=== PATIENT | female | born 1950 | race Caucasian/White ===

== ENCOUNTER 2024-05-16 13:24 | Inpatient (IN) | payer MEDICARE ==
[2024-05-16] VITALS (21 sets, daily range): BP systolic 89–108; BP diastolic 45–65
[~2024-05-16] VITALS: Ht 162.6 cm; Wt 92.0 kg
[~2024-05-16 13:24] MED LIST: ZOFRAN4 MG/TAB PO
--- NOTE | 2024-05-16 13:27 | NUR ---
PT TO ROOM WITH SLOW GAIT
[2024-05-16] MEDS ORDERED: SODIUM CHLORIDE 0.9% 1,000 ML IV STA (13:41)
--- NOTE | 2024-05-16 13:50 | NUR ---
PT RESTING IN BED, IV FLUDIS RUNNING, PT DENIES ANY NEEDS, PTS DAUGHTER AT BEDSIDE, CALL LIGHT WITHIN REACH
[2024-05-16] MEDS ORDERED: KETOROLAC TROMETHAMINE 15 MG/ML SDV IV STA (14:14)
[2024-05-16] MEDS ORDERED: MORPHINE SULFATE 4 MG/ML VIAL IV STA (14:14)
[2024-05-16] MEDS ORDERED: ONDANSETRON HCl 4 MG/2 ML SDV IV STA (14:14)
[2024-05-16 14:16] LABS: BASO% 0.1 % (0-3); EOS% 0.1 % (0-8); HEMATOCRIT 41.5 % (37.0-47.0); HEMOGLOBIN 13.3 g/dl (12.0-16.0); IMMATURE GRANULOCYTES 0.2 % (0.0-5.0); LYMPH% 10.1 % (15-41); MEAN CORPUSCULAR HGB 29.2 pG CALC (26.0-32.0); MONO% 0.9 % (2-13); NEUT# 8.8 thou/uL (2.00-7.15); NEUT% 88.6 % (42-76); RED BLOOD COUNT 4.56 mill/uL (4.20-5.60); RED CELL DISTRI WIDTH 13.1 % (11.5-15.5)
[2024-05-16 14:23] LABS: ALBUMIN 3.9 g/dL (3.2-5.0); CREATININE 1.3 mg/dL (0.5-1.0); POTASSIUM 3.6 mmol/l (3.5-5.1); TOTAL PROTEIN 6.8 g/dL (6.3-8.2)
[2024-05-16] MEDS ORDERED: SODIUM CHLORIDE 0.9% 500 ML IV ONE ×3 (14:25→18:05)
[2024-05-16] MEDS ORDERED: SODIUM CHLORIDE 0.9% 1,000 ML IV ONE (14:25)
--- NOTE | 2024-05-16 15:29 | NUR ---
PT RESTING IN BED, VSS, CALL LIGHT WITHIN REACH, PTS DAUGHTER AND SPOUSE AT BEDSIDE, PT DENIES ANY NEEDS AT THIS TIME
--- NOTE | 2024-05-16 16:04 | NUR ---
PT RESTING IN BED, PTS IV FLUIDS RUNNING, DENIES ANY NEEDS AT THIS TIME
[2024-05-16 16:22] LABS: URINE BLOOD DIPSTICK Moderate (NEGATIVE); URINE GLUCOSE - DIPSTICK Negative (NEGATIVE); URINE KETONE 15 mg/dL (NEGATIVE); URINE PROTEIN - DIPSTICK >=300 mg/dL (NEG-TRACE); URINE UROBILINOGEN - DIPSTICK 0.2 E.U./dL (0.2)
[2024-05-16 16:24] LABS: URINE COLOR Dark yellow; URINE LEUK ESTERASE Small (NEGATIVE); URINE NITRITE - DIPSTICK Positive (Negative)
[2024-05-16 16:29] LABS: URINE WBC 20-50 WBC/hpf (0-5)
[2024-05-16 16:30] LABS: URINE BACTERIA FEW hpf; URINE SQUAMOUS EPITHELIAL CELL FEW EPI/hpf (0-FEW)
[2024-05-16 16:31] LABS: URINE HYALINE CAST FEW lpf (NONE-RARE)
[2024-05-16] MEDS ORDERED: ACETAMINOPHEN 325 MG/TAB PO PRN (17:10)
[2024-05-16] MEDS ORDERED: MAGNESIUM HYDROXIDE 30 ML UDC PO PRN (17:10)
[2024-05-16] MEDS ORDERED: SODIUM CHLORIDE 0.9% 1,000 ML IV PRN (17:10)
[2024-05-16] MEDS ORDERED: EZETIMIBE10 MG PO (17:46)
[2024-05-16] MEDS ORDERED: LEVOTHYROXIN125 MCG PO (17:47)
[2024-05-16] MEDS ORDERED: LISINOP/HCTZ1 TA1 PO (17:48)
[2024-05-16] MEDS ORDERED: ATORVASTATIN CA40 MG PO (17:49)
[2024-05-16] MEDS ORDERED: TRELEGY ELLIPTA1 AE1 IN (17:49)
[2024-05-16] MEDS ORDERED: FAMOTIDINE20 M1 PO (17:50)
[2024-05-16] MEDS ORDERED: NOREPINEPHRINE BITARTRATE 4 MG in DEXTROSE 5% 250 ML IV PRN (18:05)
--- NOTE | 2024-05-16 18:28 | NUR ---
CALLED ICU, SPOKE WITH CABRERA KHAN. GAVE PT INFO, PT TO BE TRANSPORTED TO ICU BED 8
--- NOTE | 2024-05-16 19:00 | NUR ---
REPORT RECIEVED FROM CABRERA HENNESSY AT THIS TIME, PT AWAITING TRANSPORT TO ICU AT THIS TIME, REPORT CALLED BY PRIOR NURSE. PT VOICES NO FURTHER QUESTIONSO OR CONCERNS AT THIS TIME.
--- NOTE | 2024-05-16 19:30 | NUR ---
ICU NURSE NOTIFIED OF HOLD ON LEVOPHED GTT DUE TO STABLE B/P AND TRANSPORTING PT AT THIS TIME.
--- NOTE | 2024-05-16 19:45 | NUR ---
PT TRANSPORTED TO ICU AT THIS TIME VIA STRETCHER, PT PIVOTED TO ICU BED, NURSES X2 AT BEDSIDE, PT VOICES APPRECIATION OF CARE.
--- NOTE | 2024-05-16 19:53 | NUR ---
74 yr old white female admitted icu per stretcher from er. stood self with assist then to bed. bed weight obtained. glove sewer shows sinus rhythm. ivf began per chidi tlc. history obtained per pt, family & er record. oriented to room. fall precautions initiated. bed alarm activated.
[2024-05-16] MEDS ORDERED: ENOXAPARIN SODIUM 40 MG/0.4 ML SYR SC SCH (21:00)
--- NOTE | 2024-05-16 22:00 | NUR ---
eyes closed. no distress. retail special event associate shows sinus rhythm.
[2024-05-17] VITALS (52 sets, daily range): BP systolic 77–133; BP diastolic 38–67
--- NOTE | 2024-05-17 00:01 | NUR ---
eyes closed. no distress. ivf infusing well.
--- NOTE | 2024-05-17 02:00 | NUR ---
resting quietly. resps even & unlabored. no apparent distress.
--- NOTE | 2024-05-17 04:30 | NUR ---
blood drawan & sent to lab.
[2024-05-17 04:48] LABS: MEAN CELL VOLUME 92.6 fL CALC (80.0-100.0); MEAN CORPUSCULAR HGB 30.6 pG CALC (26.0-32.0); RED BLOOD COUNT 3.37 mill/uL (4.20-5.60); RED CELL DISTRI WIDTH 13.5 % (11.5-15.5)
[2024-05-17 05:12] LABS: HEMATOCRIT 31.2 % (37.0-47.0); HEMOGLOBIN 10.3 g/dl (12.0-16.0)
[2024-05-17 05:15] LABS: BILIRUBIN, TOTAL 0.9 mg/dL (0.02-1.3); CREATININE 1.7 mg/dL (0.5-1.0); MAGNESIUM 1.4 mg/dL (1.6-2.3); POTASSIUM 3.7 mmol/l (3.5-5.1)
[2024-05-17 05:17] LABS: ALBUMIN 2.6 g/dL (3.2-5.0)
--- NOTE | 2024-05-17 06:00 | NUR ---
eyes closed. setter helper shows sinus rhythm. ivf infusing well.
--- NOTE | 2024-05-17 07:30 | NUR ---
Report received from night clerk auditor nurse. Patient is resting in bed, denies any pain. Patient is A&Ox4, on room air. Levophed running to maintain MAP greater than 65. Medication has been titrated down this AM. IV fluids running as ordered. All needs addressed at this time, call light within reach.
[2024-05-17] MEDS ORDERED: LEVOTHYROXINE SODIUM 125 MCG/TAB PO SCH (08:00)
[2024-05-17] MEDS ORDERED: MAGNESIUM SULFATE HEPTAHYDRATE 50 ML IV SCH (08:00)
[2024-05-17] MEDS ORDERED: FAMOTIDINE 20 MG/TAB PO SCH (09:00)
[2024-05-17] MEDS ORDERED: ALBUTEROL SULFATE 8 GM INH IN PRN (09:35)
--- NOTE | 2024-05-17 10:00 | NUR ---
Patient is resting in bed, denies any pain. Family at bedside. Patient is A&Ox4, on room air. Levophed drip to maintain MAP greater than 65 and IV fluids running as ordered. NSR on tele monitor. All needs addressed at this time, call light within reach.
--- NOTE | 2024-05-17 12:00 | NUR ---
Patient is resting in bed, denies any pain. Patient is A&Ox4, on room air. Levophed drip to maintain MAP greater than 65 and IV fluids running as ordered. NSR on tele monitor. All needs addressed at this time, call light within reach.
[2024-05-17] MEDS ORDERED: cefTRIAXone SODIUM 2 GM in SODIUM CHLORIDE 0.9% 100 ML IV SCH (14:00)
--- NOTE | 2024-05-17 16:00 | NUR ---
Patient is resting in bed, denies any pain. A&Ox4, on room air. Levophed able to be weaned down to 2mcg to maintain MAP greater than 65, NSR on tele monitor, IV fluids running as ordered. All needs addressed, call light within reach.
--- NOTE | 2024-05-17 19:10 | NUR ---
awake. assisted to bsc then back to bed. no c/o pain voiced. monitor tech shows sinus rhythm. ivf infusing per lij tlc. po fluids taken fair. fall precautions cont.
[2024-05-17] MEDS ORDERED: ALUM & MAG HYDROX-SIMETHICONE 30 ML PO PRN (19:20)
--- NOTE | 2024-05-17 22:00 | NUR ---
eyes closed. no distress. ivf cont.
[2024-05-18] VITALS (23 sets, daily range): BP systolic 108–153; BP diastolic 52–94
--- NOTE | 2024-05-18 00:01 | NUR ---
up to [facility] freq. no distress.
--- NOTE | 2024-05-18 02:00 | NUR ---
having what appears to be periods of sleep apnea. pulse ox drops to 77% then increases to 96%.
--- NOTE | 2024-05-18 03:00 | NUR ---
up to bsc. pt admits to be scheduled for sleep study in june.
--- NOTE | 2024-05-18 04:40 | NUR ---
blood drawn & sent to lab.
[2024-05-18 05:07] LABS: HEMATOCRIT 29.6 % (37.0-47.0); HEMOGLOBIN 9.6 g/dl (12.0-16.0); MEAN CELL VOLUME 93.1 fL CALC (80.0-100.0); MEAN CORPUSCULAR HGB 30.2 pG CALC (26.0-32.0); MEAN CORPUSCULAR HGB CONC 32.4 g/dL CAL (32.0-36.0); RED BLOOD COUNT 3.18 mill/uL (4.20-5.60); RED CELL DISTRI WIDTH 13.7 % (11.5-15.5)
[2024-05-18 05:41] LABS: ALBUMIN 2.5 g/dL (3.2-5.0); POTASSIUM 3.8 mmol/l (3.5-5.1)
[2024-05-18 05:49] LABS: BILIRUBIN, TOTAL 0.5 mg/dL (0.02-1.3)
--- NOTE | 2024-05-18 06:04 | NUR ---
pt bathed herself. no distress. ivf cont.
--- NOTE | 2024-05-18 07:19 | NUR ---
PATIENT UP TO BEDSIDE COMMODE - STANBY ASSIST. 350 mL OF YELLOW URINE NOTED. ASSESSMENT COMPLETED (SEE INTERVENTIONS). PATIENT ALERT AND ORIENTED X 4. DENIES PAIN AT THIS TIME. BREATHING EVEN AND UNLABORED ON ROOM AIR. LUNGS CLEAR TO ASCULTATION. PATIENT STATES THAT THAT LAST BM 05/16, USUALLY DAILY, HOWEVER PRIOR TO ADMITTANCE DID HAVE A SEVERE BOUT OF N/V/D. LIVES AT HOME WITH /DAUGHTER. DENIES USING ASSISTIVE DEVICES TO AMBULATE. SAFETY MEASURES IN PLACE INCLUDING BED IN LOW POSITION AND CALL LIGHT NEXT TO R HAND. NO APPARENT DISTRESS NOTED. WILL CONTINUE WITH PLAN OF CARE.
--- NOTE | 2024-05-18 10:00 | NUR ---
ROUNDING COMPLETE. PATIENT UP TO CHAIR. DENIES ISSUES OR CONCERNS AT THIS TIME. NO APPARENT DISTRESS NOTED. WILL CONTINUE WITH PLAN OF CARE.
--- NOTE | 2024-05-18 12:00 | NUR ---
PATIENT UP IN BED FOR LUNCH. ROUNDING COMPLETE. ASSESSMENT UNCHANGED. DENIES ISSUES OR CONCERNS AT THIS TIME. WILL CONTINUE WITH PLAN OF CARE.
--- NOTE | 2024-05-18 16:13 | NUR ---
PATIENT APPEARS TO BE RESTING WITH EYES CLOSED. NO APPARENT DISTRESS NOTED. WILL CONTINUE WITH PLAN OF CARE.
--- NOTE | 2024-05-18 18:03 | NUR ---
PATIENT SITTING UP IN BED OR DINNER. ROUNDING COMPLETE. ASSESSMENT UNCHANGED. NO APPARENT DISTRESS NOTED. WILL CONTINUE TO MONITOR.
--- NOTE | 2024-05-18 19:45 | NUR ---
awake. denies distress. site monitor shows sinus rhythm. ivf infusing per lij tlc. po fluids taken fair. voids per bsc. fall precautions cont.
--- NOTE | 2024-05-18 22:00 | NUR ---
eyes closed. no distress.
[2024-05-19] VITALS (14 sets, daily range): BP systolic 127–170; BP diastolic 61–87
--- NOTE | 2024-05-19 00:01 | NUR ---
appears to have sleep apnes. pulse ox drops to 77% with good wave form then increases tp 96%.
--- NOTE | 2024-05-19 02:00 | NUR ---
resting quietly. no apparent distress. ivf cont.
--- NOTE | 2024-05-19 04:00 | NUR ---
vehicle monitor technician shows sinus rhythm.
--- NOTE | 2024-05-19 05:40 | NUR ---
blood drawn & sent to lab.
[2024-05-19 06:30] LABS: HEMATOCRIT 35.1 % (37.0-47.0); HEMOGLOBIN 11.2 g/dl (12.0-16.0); MEAN CELL VOLUME 92.4 fL CALC (80.0-100.0); MEAN CORPUSCULAR HGB 29.5 pG CALC (26.0-32.0); MEAN CORPUSCULAR HGB CONC 31.9 g/dL CAL (32.0-36.0); RED BLOOD COUNT 3.8 mill/uL (4.20-5.60); RED CELL DISTRI WIDTH 13.7 % (11.5-15.5)
[2024-05-19 06:44] LABS: BILIRUBIN, TOTAL 0.5 mg/dL (0.02-1.3); CREATININE 0.9 mg/dL (0.5-1.0); MAGNESIUM 1.9 mg/dL (1.6-2.3); POTASSIUM 3.9 mmol/l (3.5-5.1); TOTAL PROTEIN 5.7 g/dL (6.3-8.2)
--- NOTE | 2024-05-19 07:31 | NUR ---
PATIENT LYING IN BED. ASSESSMENT COMPLETED. PATIENT ALERT AND ORIENTED X 4. DENIES PAIN. LUNGS CLEAR TO ASCULTATION. BREATHING EVEN AND UNLABORED ON ROOM AIR. STRONG PERIPHERAL/PEDAL PULSES. BOWEL SOUNDS ACTIVE, LAST BM 05/16. SAFETY MEASURES IN PLACE INCLUDING BED IN LOW POSITION AND CALL LIGHT RESTING NEXT TO R HAND. NO APPARENT DISTRESS NOTED. WILL CONTINUE WITH PLAN OF CARE.
[2024-05-19] MEDS ORDERED: CIPROFLOXACN500 MG PO (08:40)
[2024-05-19] MEDS ORDERED: LISINOPRIL 20 MG/TAB PO SCH (09:00)
--- NOTE | 2024-05-19 10:23 | NUR ---
Discharge instructions given. Patient verbalizes understanding of same. Discharged in stable condition via Wheelchair to Home with spouse. All belongings sent with pt.
--- NOTE | 2024-05-21 14:10 | NUR ---
Discharge follow up call completed 05/21/24. Pt states she is doing fairly well. She is monitoring her BP and it has been somewhat elevated since discharge. Pt states it was better today. Pt is taking prescribed medication as directed. She has a follow up appointment with her PCP on 05/23/24. No needs or concerns verbalized at this time.
== END 2024-05-19 10:23 | disposition home or self-care (01) | DRG 871 ==
LOC: ED 13:24 → ED-I 16:46 → ED 18:11 → ICU 18:12
PROVIDERS: Nurse Practitioner; ADMIT Internal Medicine; ATTEND Internal Medicine
PROC: 05HN33Z Insertion of Infusion Device into Left Internal Jugular Vein, Percutaneous Approach (ICD-10-PCS; principal; 2024-05-16)
PROC: 3E043XZ Introduction of Vasopressor into Central Vein, Percutaneous Approach (ICD-10-PCS; 2024-05-16)
DX: A41.9 Sepsis, unspecified organism (principal); R65.21 Severe sepsis with septic shock; N39.0 Urinary tract infection, site not specified; N17.9 Acute kidney failure, unspecified; I95.89 Other hypotension; B96.1 Klebsiella pneumoniae [K. pneumoniae] as the cause of diseases classified elsewhere; I10 Essential (primary) hypertension; E03.9 Hypothyroidism, unspecified; J45.909 Unspecified asthma, uncomplicated
CPT/HCPCS: J1650; J3475